=== PATIENT | male | born 1975 | race Caucasian/White ===

== ENCOUNTER 2020-03-03 07:38 | Emergency (ER) | payer OTHER, SELFPAY ==
[2020-03-03 07:39] VITALS: BP 134/72; PULSE 87; RESP 18; TEMP 36.8; O2SAT 98; BMI 30.1
--- NOTE | 2020-03-03 07:52 | CT_ITS ---
STUDY: CT ABDOMEN AND PELVIS WITH CONTRAST REASON FOR EXAM: Male, 44 years old. ABD PAIN,HX-DIVERTICULITIS -- SURG-PARTIAL COLECTOMY,COLOSTOMY and amp; REVERSAL,ILEOSTOMY,UMBILICAL HERNIA RADIATION DOSAGE (If Supplied By Facility): CTDIvol = ( 17.26 ) mGy, DLP = ( 1125.71 ) mGycm TECHNIQUE: Transaxial images were obtained from the dome of the diaphragm to the symphysis pubis with oral contrast. Oral and amp; IV Gastrografin and amp; 100mL Isovue-300 was administered. Sagittal and coronal images were reconstructed. Individualized dose optimization techniques were used for this CT. COMPARISON: None. FINDINGS: Mild degree of increased linear markings at the lung bases suggestive of linear atelectasis and/or mild scarring. The visualized portions of the heart are within normal limits. Normal liver. Normal gallbladder and extrahepatic biliary system. Normal spleen. Normal pancreas. Normal bilateral adrenal glands. Normal right kidney. Normal left kidney. There is a small hiatal hernia. Normal small intestine. Anastomosis is seen in the region of the sigmoid colon in keeping with history of prior resection and reanastomosis. Moderate amount of fecal material is seen in the colon. The appendix is visualized and appears normal. Normal abdominal aorta. Normal inferior vena cava. Normal retroperitoneum. Normal urinary bladder. There are prostatic calcifications. There is a small umbilical hernia containing fat. Small left inguinal hernia containing fat. There is diastases of the rectus abdominis muscle with thickening of the anterior abdominal wall without omega herniation. Normal osseous structures. CT/Abdomen/Pelvis WITH Contrast IMPRESSION: Prior sigmoid resection and anastomosis. Moderate amount of fecal material is seen in the colon. Diastases of the rectus abdominis musculature. Electronically Signed: James Pereira, at 10:12 EDT , Service support ,
--- NOTE | 2020-03-03 07:53 | ED.VIS.GEN ---
History of Present Illness Chief Complaint: Abd Pain Informant: Patient Onset: Today Current Severity: Moderate Maximum Severity: Moderate Narrative: Patient present secondary to abdominal pain. He states he woke this morning with periumbilical pain. He has had nausea but no vomiting. He did have a bowel movement this morning that was normal. He denies urinary symptoms. Patient does have a history of perforated diverticulitis. He is required 2 separate abdominal surgeries for ostomy placement. Last takedown was 10 years ago. He states he has intermittent problems with abdominal pain since that time. He denies having prior bowel obstruction. - Past Medical History (1) Diverticulitis Status: Chronic Past Medical History - Allergies and Home Meds Allergies/Adverse Reactions: Allergies No Known Allergies Allergy (Verified 03/03/20 07:39) Primary Care Physician: Morena Altamirano,Out of [NON-STAFF] - Surgical History: - - Bowel resection and ostomy x2 Review of Systems General: Denies: Chills, Fever Eyes: Denies: Visual changes - bilaterally ENT: Denies: Bilateral ear pain Cardiovascular: Denies: Chest pain Respiratory: Denies: Dyspnea, Cough Gastrointestinal: Reports: Abdominal pain, Nausea. Denies: Vomiting, Diarrhea, Constipation Genitourinary: Denies: Dysuria Musculoskeletal: Denies: Swelling, Extremity Pain Skin: Denies: Rash Hematologic: Denies: Easy bruising Allergy: Denies: Uticaria Physical Exam Vital Signs/Narrative: Vital Signs Temp Pulse Resp BP Pulse Ox 03/03/20 07:39 98.2 F 87 18 134/72 H 98 Inital Vital Signs reviewed: Yes General: Well nourished, Well developed Head: Normocephalic ENT: Moist mucous membranes Neck: Supple Cardiovascular: Regular rate, Regular rhythm Respiratory: No distress, CTA bilaterally Abdomen: Soft, Tender - Moderate diffuse tenderness to palpation., Hypoactive bowel sounds. Negative for: Guarding, Rebound tenderness Extremities: Nontender Skin: Normal color Neurological: Alert, Oriented x3 Psychological: Normal affect Diagnostic/Tx/Re-eval Impressions Abdomen/Pelvis CT 03/03/20 07:52 IMPRESSION: Prior sigmoid resection and anastomosis. Moderate amount of fecal material is seen in the colon. Diastases of the rectus abdominis musculature. Electronically Signed: James Pereira, at 10:12 EDT , Service support , 03/03/20 07:52 Abdomen/Pelvis WITH Contrast [CT] Stat Laboratory Results 03/03/20 03/03/20 03/03/20 07:51 07:51 09:35 WBC 9.6 RBC 4.40 L Hgb 14.4 Hct 43.9 MCV 99.8 H MCH 32.7 H MCHC 32.8 RDW Std Deviation 41.5 RDW Coeff of Sue 11.3 L Plt Count 261 MPV 8.7 Immature Gran % (Auto) 1.200 H Neut % (Auto) 62.4 Lymph % (Auto) 25.1 [place] % (Auto) 8.2 Eos % (Auto) 2.5 Baso % (Auto) 0.6 Absolute Neuts (auto) 6.0 Absolute Lymphs (auto) 2.40 Nucleated RBC % 0 Sodium 140 Potassium 4.2 Chloride 108 H Carbon Dioxide 28.0 Anion Gap 4 L BUN 16 Creatinine 0.98 Estim Creat Clear Calc 97.25 Est GFR (MDRD) Af Amer 106 Est GFR (MDRD) Non-Af 87 BUN/Creatinine Ratio 16.3 Glucose 100 Calcium 8.6 Total Bilirubin 0.20 Direct Bilirubin 0.05 AST 19 ALT 30 Alkaline Phosphatase 59 Total Protein 6.7 Albumin 3.2 Globulin 3.5 Lipase 497 H Urine Color Yellow Urine Clarity Sl. Cloudy Urine pH 6.0 Ur Specific [place] 1.010 Urine Protein Negative Urine Glucose (UA) Normal Urine Ketones Negative Urine Occult Blood Negative Urine Nitrite Negative Urine Bilirubin Negative Urine Urobilinogen Normal Ur Leukocyte Esterase Negative Urine RBC 0 SEEN Urine WBC 0 SEEN Ur Squamous Epith Cells 0-5 SEEN Urine Bacteria 0 SEEN Urine Mucus 0 SEEN - Medical Decision Making Patient was given morphine, Zofran, IV fluids. On repeat evaluation he is resting comfortably. Test results are discussed with him. He will be given a few tabs of [place] for breakthrough pain. He will try to use Bentyl to help with the abdominal cramping. He states he does have medicine at home to help treat his constipation. I did do an oars report and his last prescription was for 10 tabs of narcotic pain medication on November [id number]. He has only had 3 prescriptions in the last year. ED Disposition - Plan for ED Patient: Disposition: Home or Assisted Living Diagnosis: Abdominal pain Instructions: ED Unknown Causes of Abdominal Pain Male, ED Constipation Prescriptions: Dicyclomine HCl [Bentyl] 20 mg PO TIDAC #20 cap Transmission Status: Pending to [id number] Hydrocodone Bitart/Apap 5-325 [[place] 5MG-325MG] 1 tablet PO Q6H PRN PRN 3 Days #10 tablet PRN Reason: Pain Transmission Status: Received by [id number] Referrals: [facility] Doctor,Out of [NON-STAFF] - Additional Instructions: [facility] not [facility].
[2020-03-03 08:00] LABS: Basophil# 0.06 X10^3/uL; Basophil% 0.6 % (0-1); Eosinophil# 0.24 X10^3/uL; Eosinophils% 2.5 % (0-5); Hematocrit 43.9 % (40-54); Hemoglobin 14.4 g/dL (13.0-16.5); Lymphocyte % 25.1 % (19-41); Mean Corp Hgb Conc 32.8 g/dL (32-36); Mean Corpuscular Hgb 32.7 pg (27.0-32.0); Mean Corpuscular Volume 99.8 fL (80-94); Mean Platelet Vol. 8.7 fl (6.2-12.0); Monocyte# 0.78 X10^3/uL; Monocyte% 8.2 % (0-10); NRBC Flagged by Analyzer 0 % (0-5); Neutrophil # 5.97 X10^3/uL (2.7-7.7); Neutrophil % 62.4 % (47-70); Platelet Count 261 K/mm3 (150-450); RBC Distribution Width CV 11.3 % (11.6-14.6); RBC Distribution Width SD 41.5 fl (35.1-43.9); White Blood Count 9.6 K/mm3 (4.4-11.0)
[2020-03-03] MEDS: Ondansetron 4 MG/2 ML Vial IV (08:01)
[2020-03-03] MEDS: Morphine 4 MG/ML Syringe IV ×2 (08:01→10:10)
[2020-03-03] MEDS: 0.9% Normal Saline 1,000 ML 150 ML IV (08:09)
[2020-03-03 08:14] LABS: AST(SGOT) 19 U/L (15-37); Alanine Aminotransfer ALT/SGPT 30 U/L (16-61); Albumin, Serum 3.2 g/dL (3.2-5.0); Alkaline Phosphatase 59 U/L (45-117); Anion Gap 4 (5-15); BUN 16 mg/dL (7-18); BUN/Creat Ratio 16.3 RATIO (10-20); Bilirubin, Direct 0.05 mg/dL (0.00-0.30); Calcium,Total 8.6 mg/dL (8.5-10.1); Chloride 108 mmol/L (98-107); Creatinine, Serum 0.98 mg/dL (0.70-1.30); EST Glomerular Filtration Rate 87 mL/min (>60); Est Glom Filt Rate - Afr Amer 106 mL/min (>60); Estimated Creatinine Clearance 97.25 ml/min; Globulin 3.5 g/dL (2.2-4.2); Glucose 100 mg/dL (74-106); Lipase 497 U/L (73-393); Potassium 4.2 mmol/L (3.5-5.1); Protein, Total 6.7 g/dL (6.4-8.2); Sodium Level 140 mmol/L (136-145)
[2020-03-03 09:41] LABS: Bacteria 0 SEEN /hpf (None Seen); Mucous, Urine 0 SEEN /hpf (<or=2+); Red Blood Cells-Urine 0 SEEN /hpf (0-5); White Blood Cells 0 SEEN /hpf (0-5)
[2020-03-03 09:45] LABS: Color, Urine Yellow (Yellow); Glucose, Dipstick Normal (Normal); Ketone-Dipstick Negative (Negative); Leukocyte Esterase-Dipstick Negative /ul (Negative); Nitrite-Dipstick Negative (Negative); Occult Blood-Urine Negative /ul (Negative); Protein-Dipstick Negative (Negative); Urine Bilirubin Dipstick Negative (Negative); Urine Clarity Sl. Cloudy (Clear); Urine Urobilinogen Normal (Normal)
[2020-03-03 09:51] LABS: Squamous Epithelial Cells - UA 0-5 SEEN /hpf (0-5)
[2020-03-03 10:33] VITALS: BP 102/66; PULSE 70; RESP 16; O2SAT 99
== END 2020-03-03 10:34 | disposition home or self-care (01) ==
PROVIDERS: Emergency Provider Emergency Medicine
DX: R10.33 Periumbilical pain (principal); R11.0 Nausea; Z87.19 Personal history of other diseases of the digestive system
CPT/HCPCS: 74177; 80048; 80076; 81001; 83690; 85025; 96361; 96374; 96375; 96376; 99283; J7030; Q9967; A4216; J2405